=== PATIENT | female | born 1955 | race African-American/Black ===

== ENCOUNTER 2021-04-29 13:48 | Inpatient (IN) | payer OTHER ==
[2021-04-29] VITALS (9 sets, daily range): BP systolic 114–124; BP diastolic 42–54
[~2021-04-29] VITALS: Ht 165.1 cm; Wt 57.2 kg
[2021-04-29] MEDS ORDERED: VANCOMYCIN 1 G PREMIX 200 ML IV ONE (14:30)
[2021-04-29] MEDS ORDERED: SODIUM CHLORIDE 0.9% 1000ML BAG (SEPSIS BOLUS) IV ONE (14:30)
[2021-04-29] MEDS ORDERED: PIPERACILLIN/TAZ 3.375G PREMIX 50 ML IV ONE (14:30)
[2021-04-29] MEDS ORDERED: SODIUM CHLORIDE 0.9% 500 ML IV ONE (14:45)
[2021-04-29 14:53] LABS: HEMATOCRIT. 41.3 % (36.0-48.0); HEMOGLOBIN. 12.7 g/dL (12.0-16.0); MEAN CORPUSCULAR HEMOGLOBIN 32.2 pg (28.0-32.0); MEAN CORPUSCULAR VOLUME 104.8 fL (81.0-99.0); MEAN PLATELET VOLUME 8.9 fl (7.4-10.4); PLATELET 124 x1000/uL (130-400); RED BLOOD CELL COUNT 3.94 mill/uL (4.2-5.4); RED CELL DISTRIBUTION WIDTH 19.5 % (11.6-14.6)
[2021-04-29 14:59] LABS: CHLORIDE 109 mEq/L (98-107)
[2021-04-29 15:55] LABS: INR 1.6; PROTHROMBIN TIME 16.6 sec (9.6-11.0)
[2021-04-29 16:40] LABS: MEAN CORPUSCULAR HEMOGLOBIN 32.1 pg (28.0-32.0); MEAN CORPUSCULAR VOLUME 111.3 fL (81.0-99.0); MEAN PLATELET VOLUME 9.2 fl (7.4-10.4); PLATELET 113 x1000/uL (130-400); RED BLOOD CELL COUNT 4.05 mill/uL (4.2-5.4)
[2021-04-29 17:21] LABS: NUCLEATED RED BLOOD CELLS 1 /100 WBC
[2021-04-29 17:22] LABS: PLATELET ESTIMATE SLIGHTLY DECREASED
[2021-04-29 18:12] LABS: PLATELET ESTIMATE DECREASED
[2021-04-29] MEDS ORDERED: ONDANSETRON HCL 4MG/2ML INJ IV PRN (22:00)
[2021-04-29] MEDS: PIPERACILLIN/TAZOBACTAM 3.375 G in DEXTROSE 5% WATER 50 ML IV SCH (23:58)
[2021-04-29] MEDS: DEXT 5%/0.45% NACL 1000ML 1,000 ML IV SCH (23:58)
[2021-04-30] VITALS (72 sets, daily range): BP systolic 105–144; BP diastolic 37–68
[2021-04-30] MEDS ORDERED: IPRATROPIUM/ALBUTEROL 0.5-3(2.5)MG/3ML NEB HHN SCH
[2021-04-30 00:13] LABS: HEMATOCRIT. 41.3 % (36.0-48.0); HEMOGLOBIN. 13.2 g/dL (12.0-16.0); MEAN CORPUSCULAR HEMOGLOBIN 32.5 pg (28.0-32.0); MEAN CORPUSCULAR VOLUME 102.1 fL (81.0-99.0); MEAN PLATELET VOLUME 9.2 fl (7.4-10.4); PLATELET 102 x1000/uL (130-400); RED BLOOD CELL COUNT 4.04 mill/uL (4.2-5.4); RED CELL DISTRIBUTION WIDTH 18.9 % (11.6-14.6)
[2021-04-30 00:14] LABS: CHLORIDE 109 mEq/L (98-107)
[2021-04-30] MEDS ORDERED: VANCOMYCIN 500 MG PREMIX 100 ML IV SCH (04:00)
[2021-04-30 05:47] LABS: NUCLEATED RED BLOOD CELLS 2 /100 WBC
[2021-04-30 05:48] LABS: PLATELET ESTIMATE SLIGHTLY DECREASED
[2021-04-30] MEDS: PIPERACILLIN/TAZOBACTAM 3.375 G in DEXTROSE 5% WATER 50 ML IV SCH ×3 (05:54→22:26)
[2021-04-30 06:13] LABS: HEMATOCRIT. 41.6 % (36.0-48.0); HEMOGLOBIN. 12.5 g/dL (12.0-16.0); MEAN CORPUSCULAR HEMOGLOBIN 31.8 pg (28.0-32.0); MEAN CORPUSCULAR VOLUME 106.2 fL (81.0-99.0); MEAN PLATELET VOLUME 8.7 fl (7.4-10.4); PLATELET 86 x1000/uL (130-400); RED BLOOD CELL COUNT 3.92 mill/uL (4.2-5.4); RED CELL DISTRIBUTION WIDTH 18.8 % (11.6-14.6)
[2021-04-30] MEDS: IPRATROPIUM/ALBUTEROL 0.5-3(2.5)MG/3ML NEB HHN SCH ×5 (08:00→20:46)
[2021-04-30] MEDS ORDERED: PANTOPRAZOLE SODIUM 40 MG/VIAL IV SCH (09:00)
[2021-04-30] MEDS ORDERED: ENOXAPARIN 40MG/0.4ML SYR SUBCUT SCH (09:00)
[2021-04-30 09:03] LABS: BG BASE EXCESS -5.9 mmol/L (-2.0-2.0); BG CARBOXYHEMOGLOBIN 0.8 % (0.5-1.5); BG DEOXYHEMOGLOBIN 3.2 % (0.0-5.0); BG FRACTION INSPIRED OXYGEN 100; BG HCO3 ACT 19.9 mmol/L (22.0-26.0); BG METHEMOGLOBIN 0.4 % (0.0-1.5); BG OXYGEN SATURATION 96.8 % (92.0-98.5); BG OXYHEMOGLOBIN 95.6 % (94.0-97.0); BG PCO2 40.1 mmHg (35.0-45.0); BG PH 7.313 (7.350-7.450); BG PO2 100.3 mmHg (75.0-100.0); BG SAMPLE SITE RIGHT RADIAL; BG TOTAL HEMOGLOBIN 12.9 g/dL (12.0-18.0); BG VENT MODE MASK - NRB
[2021-04-30] MEDS ORDERED: MAGNESIUM/ALUMINUM HYDROXIDE/SIMETHICONE 30ML UDC PO PRN (10:15)
[2021-04-30] MEDS ORDERED: CLONIDINE 0.1MG TABLET PO PRN (10:15)
[2021-04-30] MEDS ORDERED: DIPHENHYDRAMINE 50MG/ML VIAL IV PRN (10:15)
[2021-04-30] MEDS ORDERED: DOCUSATE SODIUM 100MG CAPSULE PO PRN (10:15)
[2021-04-30] MEDS ORDERED: FUROSEMIDE 40MG/4ML VIAL IVP NR (10:30)
[2021-04-30 10:36] LABS: PLATELET ESTIMATE DECREASED
[2021-04-30] MEDS ORDERED: LIDOCAINE HCL 1% 10 MG/ML 10ML VIAL ONE (10:57)
[2021-04-30 11:20] LABS: T4 FREE 0.68 ng/dL (0.76-1.46)
[2021-04-30 11:37] LABS: FOLIC ACID (FOLATE) SERUM 10.5 ng/mL (>5.38)
[2021-04-30] MEDS: DEXT 5%/0.45% NACL 1000ML 1,000 ML IV SCH (12:20)
[2021-04-30 12:30] LABS: FERRITIN 283 ng/mL (10-291)
[2021-04-30 12:41] LABS: HEPATITIS B SURFACE ANTIGEN NEGATIVE
[2021-04-30 13:22] LABS: CLARITY URINE CLOUDY (CLEAR); COLOR URINE DARK YELLOW (YELLOW); KETONES URINE NEGATIVE (NEGATIVE); LEUKOCYTE ESTERASE URINE NEGATIVE (NEGATIVE); NITRITE URINE NEGATIVE (NEGATIVE); OCCULT BLOOD URINE 1+ (NEGATIVE); PROTEIN URINE 2+ (NEGATIVE)
[2021-04-30 13:35] LABS: OPIATES URINE SCREEN PRESUMTIVE POSITIVE (NEGATIVE); PHENCYCLIDINE URINE SCREEN NEGATIVE (NEGATIVE)
[2021-04-30 13:36] LABS: *AMPHETAMINES SCREEN URINE NEGATIVE (NEGATIVE); *BARBITURATES SCREEN URINE NEGATIVE (NEGATIVE); *BENZODIAZEPINES SCREEN URINE NEGATIVE (NEGATIVE); *COCAINE SCREEN URINE NEGATIVE (NEGATIVE); CANNABINOID URINE SCREEN PRESUMTIVE POSITIVE (NEGATIVE); METHADONE URINE SCREEN NEGATIVE (NEGATIVE)
[2021-04-30] MEDS ORDERED: FURO-152 PO (15:37)
[2021-04-30] MEDS ORDERED: ASPI-1497 MT (15:37)
[2021-04-30] MEDS ORDERED: MIRT-89 MT (15:37)
[2021-04-30] MEDS ORDERED: MEGE400O5 PO (15:37)
[2021-04-30 16:57] LABS: CREATINE KINASE MB FRACTION 3.5 ng/mL (0.5-3.6)
[2021-04-30] MEDS: PANTOPRAZOLE SODIUM 40 MG/VIAL IV SCH (18:08)
[2021-04-30] MEDS: VANCOMYCIN 750 MG PREMIX 150 ML IV SCH (18:08)
[2021-05-01] VITALS (87 sets, daily range): BP systolic 106–135; BP diastolic 35–72
[2021-05-01] MEDS: CEFEPIME 2,000 MG in DEXT 5% WATER 100 ML IV SCH ×3 (00:21→21:08)
[2021-05-01 01:24] LABS: CREATINE KINASE MB FRACTION 6.4 ng/mL (0.5-3.6)
[2021-05-01] MEDS: IPRATROPIUM/ALBUTEROL 0.5-3(2.5)MG/3ML NEB HHN SCH ×4 (02:28→20:49)
[2021-05-01] MEDS: DEXT 5%/0.45% NACL 1000ML 1,000 ML IV SCH ×2 (05:59→21:08)
[2021-05-01 06:24] LABS: HEMATOCRIT. 39.3 % (36.0-48.0); MEAN CORPUSCULAR HEMOGLOBIN 31.5 pg (28.0-32.0); MEAN CORPUSCULAR VOLUME 103.3 fL (81.0-99.0); MEAN PLATELET VOLUME 10.2 fl (7.4-10.4); RED BLOOD CELL COUNT 3.81 mill/uL (4.2-5.4); RED CELL DISTRIBUTION WIDTH 18.9 % (11.6-14.6)
[2021-05-01 06:53] LABS: PLATELET 41 x1000/uL (130-400)
[2021-05-01 07:19] LABS: CHLORIDE 110 mEq/L (98-107)
[2021-05-01 07:25] LABS: PHOSPHORUS 3.8 mg/dL (2.5-4.9)
[2021-05-01 07:26] LABS: AMYLASE 120 IU/L (25-115); HDL CHOLESTEROL 21 mg/dL (40-59); LDL CHOLESTEROL 34 mg/dL (5-100)
[2021-05-01 07:30] LABS: CREATINE KINASE MB FRACTION 1.4 ng/mL (0.5-3.6)
[2021-05-01 07:31] LABS: T4 FREE 0.88 ng/dL (0.76-1.46)
[2021-05-01] MEDS: PANTOPRAZOLE SODIUM 40 MG/VIAL IV SCH (09:01)
[2021-05-01 12:12] LABS: NUCLEATED RED BLOOD CELLS 2 /100 WBC; PLATELET ESTIMATE MARKEDLY DECREASED
[2021-05-01] MEDS: VANCOMYCIN 750 MG PREMIX 150 ML IV SCH (12:46)
[2021-05-01] MEDS ORDERED: FAMOTIDINE 20MG/2ML VIAL IV SCH (21:00)
[2021-05-02] VITALS (66 sets, daily range): BP systolic 88–145; BP diastolic 32–110
[2021-05-02] MEDS: IPRATROPIUM/ALBUTEROL 0.5-3(2.5)MG/3ML NEB HHN SCH ×4 (00:33→21:30)
[2021-05-02] MEDS: LACTULOSE 20G/30ML UDC PO SCH ×4 (05:45→22:00)
[2021-05-02 06:04] LABS: HEMATOCRIT. 37.5 % (36.0-48.0); HEMOGLOBIN. 11.6 g/dL (12.0-16.0); MEAN CORPUSCULAR HEMOGLOBIN 31.8 pg (28.0-32.0); MEAN CORPUSCULAR VOLUME 102.7 fL (81.0-99.0); MEAN PLATELET VOLUME 10.7 fl (7.4-10.4); RED BLOOD CELL COUNT 3.65 mill/uL (4.2-5.4); RED CELL DISTRIBUTION WIDTH 18.7 % (11.6-14.6)
[2021-05-02 06:12] LABS: CHLORIDE 112 mEq/L (98-107)
[2021-05-02 06:18] LABS: PLATELET 33 x1000/uL (130-400)
[2021-05-02 06:21] LABS: PHOSPHORUS 2.2 mg/dL (2.5-4.9)
[2021-05-02 06:26] LABS: AMYLASE 107 IU/L (25-115)
[2021-05-02] MEDS: CEFEPIME 2,000 MG in DEXT 5% WATER 100 ML IV SCH (08:38)
[2021-05-02] MEDS ORDERED: FUROSEMIDE 40MG/4ML VIAL IVP NR (09:30)
[2021-05-02 10:21] LABS: PLATELET ESTIMATE MARKEDLY DECREASED
[2021-05-02] MEDS ORDERED: POTASSIUM CHLORIDE 20MEQ/PACKET PO SCH (12:00)
[2021-05-02] MEDS ORDERED: HYDROCODONE/ACETAMINOPHEN 5/325MG TABLET PO PRN (13:45)
[2021-05-02] MEDS ORDERED: NALOXONE HCL 0.4MG/ML VIAL IV PRN (13:45)
[2021-05-02] MEDS ORDERED: MORPHINE SULFATE 2 MG/ML CPJ (NOT FOR IM USE) IV PRN ×2 (13:45→14:30)
== END 2021-05-02 23:10 | disposition short-term general hospital (02) | DRG 871 ==
LOC: ER 14:16 → CVICU 15:20 → EDBEDREQSVC 15:23 → EDBEDREQ 15:23 → ENRESERV 19:12 → 8WST 05-02 17:53
PROVIDERS: ADMIT Internal Medicine; ATTEND Internal Medicine
PROC: 02H633Z Insertion of Infusion Device into Right Atrium, Percutaneous Approach (ICD-10-PCS; principal; 2021-04-30)
PROC: B548ZZA Ultrasonography of Superior Vena Cava, Guidance (ICD-10-PCS; 2021-04-30)
DX: A41.89 Other specified sepsis (principal); L89.153 Pressure ulcer of sacral region, stage 3; G93.41 Metabolic encephalopathy; J96.01 Acute respiratory failure with hypoxia; J18.9 Pneumonia, unspecified organism; K29.71 Gastritis, unspecified, with bleeding; E46 Unspecified protein-calorie malnutrition; Z66 Do not resuscitate; N28.9 Disorder of kidney and ureter, unspecified; D69.6 Thrombocytopenia, unspecified; I11.0 Hypertensive heart disease with heart failure; F03.90 Unspecified dementia, unspecified severity, without behavioral disturbance, psychotic disturbance, mood disturbance, and anxiety; I27.20 Pulmonary hypertension, unspecified; R74.01 Elevation of levels of liver transaminase levels; I35.1 Nonrheumatic aortic (valve) insufficiency; K76.0 Fatty (change of) liver, not elsewhere classified; I50.9 Heart failure, unspecified; I73.9 Peripheral vascular disease, unspecified; Z20.822 Contact with and (suspected) exposure to COVID-19; Z95.2 Presence of prosthetic heart valve; Z74.01 Bed confinement status; Z79.82 Long term (current) use of aspirin; Z79.899 Other long term (current) drug therapy; Z68.21 Body mass index [BMI] 21.0-21.9, adult
CPT/HCPCS: 36415; 36600; 71045; 76604; 76700; 76937; 80048; 80053; 80061; 80076; 80202; 80305; 81003; 82140; 82150; 82248; 82375; 82550; 82553; 82607; 82728; 82746; 82805; 83605; 83615; 83735; 83880; 84100; 84134; 84145; 84155; 84439; 84443; 84481; 84484; 85025; 85044; 86038; 86705; 86709; 86803; 86850; 86900; 87340; 87426; 92610; 93005; 93306; 93923; 93970; 94640; 97162; 97166; 99291; A6261; C1725; C9113; J0692; J1650; J1940; J2270; J2543; J3370; J3490; J7030; J7040; J7060; A4315